=== PATIENT | female | born 1985 | race Caucasian/White ===

== ENCOUNTER → 2016-08-30 | Outpatient (CLI) | payer BC ==
--- NOTE | 2016-08-30 20:27 | XR ---
EXAMINATION TYPE: XR lumbosacral spine min 4V DATE OF EXAM: 08/30/2016 1:08 PM COMPARISON: NONE HISTORY: 31-year-old female with back pain for one year TECHNIQUE: 5 views FINDINGS: There is gentle levoconvex curvature of the lumbar spine. 5 lumbar type vertebral bodies. No pars int erarticularis defect. Suboptimal lateral views probably due to the patient's curvature. Vertebral body heights are preserve d and alignment is maintained. IMPRESSION: Levoconvex curvature of lumbar spine could be positional, due to muscle spasm, or secondary to an und erlying scoliosis. Clinical correlation recommended. This curvature makes the lateral views suboptima l. No evident vertebral compression collapse or malalignment.
== END | disposition home or self-care (01) ==
LOC: RADXRMAIN 12:43
PROVIDERS: ATTEND Family Medicine
DX: M41.86 Other forms of scoliosis, lumbar region (principal)
CPT/HCPCS: 72110

== ENCOUNTER → 2016-11-28 | Outpatient (CLI) | payer BC ==
--- NOTE | 2016-11-28 23:26 | MR ---
EXAMINATION TYPE: MR lumbar spine wo con DATE OF EXAM: 11/28/2016 COMPARISON: NONE HISTORY: Low Back Pain and Numbness x6 months TECHNIQUE: Multiplanar, multisequence images of the lumbar spine were acquired. The lumbar vertebra have normal alignment. Disc spaces appear normal. There is no spinal stenosis. Kavita mbar nerve roots appear normal. Neural foramina appear normal. The posterior elements are intact. The re is no paraspinal mass. The sacroiliac joints appear normal. I see no focal bone destruction. IMPRESSION: Lumbar spine appears normal for age.
== END | disposition home or self-care (01) ==
LOC: RADMRIMAIN 16:35
PROVIDERS: ATTEND Family Medicine
DX: M54.5 Low back pain (principal)
CPT/HCPCS: 72148

== ENCOUNTER → 2020-03-13 | Outpatient (CLI) | payer BC | END | disposition home or self-care (01) | LOC: LABWHC1 13:28 | PROVIDERS: ATTEND Family Medicine | DX: Z03.818 Encounter for observation for suspected exposure to other biological agents ruled out (principal) | CPT/HCPCS: U0003; C9803 ==